=== PATIENT | female | born 1995 | race Asian ===

== ENCOUNTER 2018-08-19 12:18 | Emergency (ER) | payer MEDICAID ==
[~2018-08-19] VITALS: Ht 157.5 cm; Wt 64.5 kg
[2018-08-19] MEDS ORDERED: ALBUTEROL SULFATE 2.5 MG/0.5 ML NEB SOLUTION NEB ONE (12:45)
[2018-08-19] MEDS ORDERED: 0.9% SODIUM CHLORIDE 5 ML NEB SOLUTION NEB ONE (12:51)
[2018-08-19 13:44] VITALS: BP 120/68
== END 2018-08-19 14:52 | disposition home or self-care (01) ==
LOC: EMS 12:20
DX: R07.89 Other chest pain (principal); R05 Cough; J45.909 Unspecified asthma, uncomplicated; Z87.891 Personal history of nicotine dependence
CPT/HCPCS: 93005; 94640